=== PATIENT | male | born 1985 | race Caucasian/White ===

== ENCOUNTER 2017-01-02 13:24 | Inpatient (IN) | payer OTHER ==
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
[2017-01-02] MEDS ORDERED: ACETAMINOPHEN 325 MG TABLET (FP) PO PRN (19:12)
[2017-01-02] MEDS ORDERED: MAG HYDROX/AL HYDROX/SIMETH 30 ML UNIT-DOSE CUP PO PRN (19:12)
[2017-01-02] MEDS ORDERED: guaiFENesin/D-METHORPHAN HB 10 ML UNIT-DOSE CUPS PO PRN (19:12)
[2017-01-02] MEDS ORDERED: diphenhydrAMINE HCL 50 MG CAPSULE PO PRN (19:12)
[2017-01-02] MEDS ORDERED: METHADONE HCL 10 MG TABLET (FOR DETOX USE ONLY) PO ONE ×2 (19:12→23:00)
[2017-01-02] MEDS ORDERED: LOPERAMIDE HCL 2 MG CAPSULE PO PRN (19:12)
[2017-01-02] MEDS ORDERED: MAGNESIUM CITRATE 300 ML BOTTLE PO PRN (19:12)
[2017-01-02] MEDS ORDERED: IBUPROFEN 400 MG TABLET (FP) PO PRN (19:12)
[2017-01-02] MEDS ORDERED: MAGNESIUM HYDROX 2400MG/30ML ORAL SUSPENSION 30 ML CUP PO PRN (19:12)
[2017-01-02] MEDS ORDERED: MENTHOL/PHENOL 1 EACH UD MM PRN (19:12)
[2017-01-02] MEDS ORDERED: P-EPHED 60MG/TRIPROLIDI 2.5MG TABLET PO PRN (19:12)
[2017-01-02 19:29] VITALS: BMI 27.0
[2017-01-02] MEDS: chlordiazePOXIDE HCL 25 MG CAPSULE PO PRN (20:17)
[2017-01-02] MEDS: NICOTINE POLACRILEX 4 MG GUM BC PRN ×2 (20:19→22:29)
[2017-01-02] MEDS ORDERED: THIAMINE HCL 100 MG TABLET (FP) PO SCH (22:00)
[2017-01-02] MEDS: CYCLOBENZAPRINE HCL 10 MG TABLET (FP) PO PRN (22:28)
[2017-01-02] MEDS: cloNIDine HCL 0.1 MG TABLET PO PRN (22:29)
[2017-01-02] MEDS: chlordiazePOXIDE HCL 25 MG CAPSULE PO SCH (22:29)
[2017-01-02 22:39] LABS: URINE APPEARANCE CLEAR; URINE BILIRUBIN NEGATIVE (NEGATIVE); URINE BLOOD NEGATIVE (NEGATIVE); URINE COLOR YELLOW; URINE GLUCOSE (UA) NEGATIVE (NEGATIVE); URINE KETONE NEGATIVE (NEGATIVE); URINE LEUK ESTERASE NEGATIVE (NEGATIVE); URINE NITRITE NEGATIVE (NEGATIVE); URINE PROTEIN NEGATIVE (NEGATIVE); URINE UROBILINOGEN NEGATIVE E.U./dl (0.2-1.0)
[2017-01-03] MEDS: chlordiazePOXIDE HCL 25 MG CAPSULE PO SCH ×2 (05:33→10:11)
[2017-01-03] MEDS: NICOTINE POLACRILEX 4 MG GUM BC PRN ×3 (05:35→14:54)
--- NOTE | 2017-01-03 08:24 | CONSULT ---
[facility] Psychiatric Consult - Data Date of interview: 01/03/17 Admission source: [facility] Identifying data: This is 31 years old male with no psychiatric hospitaliztion history intoxicated with: Opioids, Xanax and Nicotine Substance Abuse History: - Smoking Cessation. Smoking history: Current every day smoker. Have you smoked in the past 12 months: Yes. Aproximately how many cigarettes per day: 30. Cigars Per Day: 0. Hx Chewing Tobacco Use: No. Initiated information on smoking cessation: Yes. 'Breaking Loose' booklet given : 01/02/17. - Substance & Tx. History. Hx Alcohol Use: No. Hx Substance Use: Yes. Substance Use Type: Cocaine, Heroin, Tranquilizers. Hx Substance Use Treatment: Yes (07/17-07/19). - Substances Abused. Heroin. Amount used: IO BAGS. Age of first use: 24. Date of Last Use: 01/02/17. Alprazolam ( Xanax). Route: Oral. Frequency: Daily. Amount used: 2 mg. Age of first use: 24. Date of Last Use: 01/01/17 Medical History: Denies significant medical issues Psychiatric History: Reports history of ADHD Physical/Sexual Abuse/Trauma History: Denies Additional Comment: Observation. Detox Unit Care Protocol Mental Status Exam - Mental Status Exam Alert and Oriented to: Person Cognitive Function: Fair Patient Appearance: Unkempt Mood: Sad Affect: Flat Patient Behavior: Cooperative Speech Pattern: Appropriate Voice Loudness: Normal Thought Process: Goal Oriented Thought Disorder: Being Controlled Hallucinations: Denies Suicidal Ideation: Denies Homicidal Ideation: Denies Sleep: Difficulty falling asleep Appetite: Fair Muscle strength/Tone: Normal Gait/Station: Normal Additional Comments: Observation. Detox Unit Care Protocol
[2017-01-03 09:43] LABS: MCHC 32.4 g/dl (32.0-35.9); MEAN CELL VOLUME 86.3 fl (80-96); MEAN PLT VOLUME 8.2 fl (7.5-11.1); PLATELET COUNT 231 K/MM3 (134-434); RDW 15.3 % (11.9-15.9); WHITE BLOOD COUNT 11.4 K/mm3 (4.0-10.0)
[2017-01-03] MEDS ORDERED: METHADONE HCL 10 MG TABLET (FOR DETOX USE ONLY) PO SCH (10:00)
[2017-01-03] MEDS ORDERED: NICOTINE 21 MG/24 HOURS TOPICAL PATCH TD SCH (10:00)
[2017-01-03] MEDS ORDERED: PRENATAL VITAMINS W/ FOLIC ACID TABLET (FP) PO SCH (10:00)
[2017-01-03] MEDS: cloNIDine HCL 0.1 MG TABLET PO PRN (10:10)
[2017-01-03] MEDS: CYCLOBENZAPRINE HCL 10 MG TABLET (FP) PO PRN (10:10)
--- NOTE | 2017-01-03 12:03 | PN ---
[facility] CIWA - CIWA Score Nausea/Vomitin-No Nausea/No Vomiting Muscle Tremors: 3 Anxiety: 3 Agitation: 4-Moderately Restless Paroxysmal Sweats: 3 Orientation: 0-Oriented Tacttile Disturbances: 0-None Auditory Disturbances: 0-None Visual Disturbances: 0-None Headache: 0-None Present CIWA-Ar Total Score: 13 [facility] COWS - Scale Resting Pulse: 0= [place] 80 or Below Sweatin=Flushed/Facial Moisture Restless Observation: 1= Difficult to Sit Still Pupil Size: 0= Normal to Room Light Bone or Joint Aches: 2= Severe Diffuse Aches Runny Nose/ Eye Tearin= Runny Nose/Eyes GI Upset > 30mins: 0= None Tremor Observation of Outstretched Hands: 2= Slight Tremor Visible Yawning Observation: 1= 1-2x During Session Anxiety or Irritability: 2=Irritable/Anxious Goose Flesh Skin: 0=Smooth Skin COWS Score: 12 S Progress Note (SOAP) Subjective: hot/cold flashes sweats irritable agitation interrupted sleep Objective: 01/03/17 12:02 Vital Signs Temperature 98.2 F 01/03/17 09:51 Pulse Rate 74 01/03/17 09:51 Respiratory Rate 20 01/03/17 09:51 Blood Pressure 127/87 01/03/17 09:51 O2 Sat by Pulse Oximetry (%) Laboratory Tests 01/02/17 01/03/17 22:15 07:00 WBC 11.4 H D RBC 4.58 Hgb 12.8 Hct 39.5 MCV 86.3 MCHC 32.4 RDW 15.3 Plt Count 231 MPV 8.2 Urine Color Yellow Urine Appearance Clear Urine pH 5.0 Ur Specific [place] >= 1.030 H Urine Protein Negative Urine Glucose (UA) Negative Urine Ketones Negative Urine Blood Negative Urine Nitrite Negative Urine Bilirubin Negative Urine Urobilinogen Negative Ur Leukocyte Esterase Negative labs pending awake/alert ambulating no acute distress Assessment: 01/03/17 12:02 withdrawal sx Plan: continue detox increase fluids labs pending
--- NOTE | 2017-01-03 12:41 | EKG ---
Test Reason : Blood Pressure : / mmHG Vent. Rate : 063 BPM Atrial Rate : 063 BPM P-R Int : 172 ms QRS Dur : 092 ms QT Int : 402 ms P-R-T Axes : 049 068 012 degrees QTc Int : 411 ms NORMAL SINUS RHYTHM WITH SINUS ARRHYTHMIA SEPTAL INFARCT , AGE UNDETERMINED ABNORMAL ECG WHEN COMPARED WITH ECG OF 16-NOV-2009 22:03, SEPTAL INFARCT IS NOW PRESENT Confirmed by SAEED BYRNES, HECTOR ([id number]) on 01/03/2017 12:40:53 PM Referred By: Yayo Miner Confirmed By:HECTOR TIPTON MD
[2017-01-03 13:20] LABS: ALBUMIN 3.4 g/dl (3.4-5.0); ALK PHOS 55 U/L (45-117); ANION GAP 9 (8-16); BILIRUBIN,TOTAL 0.5 mg/dL (0.2-1.0); CALCIUM 9.4 mg/dL (8.5-10.1); CO2 28 mmol/L (21-32); GLUCOSE,RANDOM 82 mg/dL (74-106); SGOT/AST 10 U/L (15-37); SGPT/ALT 11 U/L (12-78); TOT PROT 7.2 g/dl (6.4-8.2)
[2017-01-03] MEDS: chlordiazePOXIDE HCL 25 MG CAPSULE PO PRN (14:53)
[2017-01-03 16:58] VITALS: BP 119/65; PULSE 64; TEMP 98.4
--- NOTE | 2017-01-03 21:52 | DS ---
[facility] Detox Discharge Summary Admission Date: 01/02/17 Discharge Date: 01/03/17 - History Present History: Opioid Dependence, Sedative Dependence Additional Comments: patient wants to leave the unit refuses to wait face to face with the provider refuses e prescription - Physical Exam Results Vital Signs: Vital Signs Temperature 98.4 F 01/03/17 16:58 Pulse Rate 64 01/03/17 16:58 Respiratory Rate 18 01/03/17 16:58 Blood Pressure 119/65 01/03/17 16:58 O2 Sat by Pulse Oximetry (%) Pertinent Admission Physical Exam Findings: withdrawal sx Laboratory Last Values WBC 11.4 K/mm3 (4.0-10.0) H D 01/03/17 07:00 RBC 4.58 M/mm3 (4.00-5.60) 01/03/17 07:00 Hgb 12.8 GM/dL (11.7-16.9) 01/03/17 07:00 Hct 39.5 % (35.4-49) 01/03/17 07:00 MCV 86.3 fl (80-96) 01/03/17 07:00 MCHC 32.4 g/dl (32.0-35.9) 01/03/17 07:00 RDW 15.3 % (11.9-15.9) 01/03/17 07:00 Plt Count 231 K/MM3 (134-434) 01/03/17 07:00 MPV 8.2 fl (7.5-11.1) 01/03/17 07:00 Sodium 142 mmol/L (136-145) 01/03/17 07:00 Potassium 3.9 mmol/L (3.5-5.1) 01/03/17 07:00 Chloride 105 mmol/L (98-107) 01/03/17 07:00 Carbon Dioxide 28 mmol/L (21-32) 01/03/17 07:00 Anion Gap 9 (8-16) 01/03/17 07:00 BUN 8 mg/dL (7-18) D 01/03/17 07:00 Creatinine 1.0 mg/dL (0.7-1.3) 01/03/17 07:00 Creat Clearance w eGFR > 60 (>60) 01/03/17 07:00 Random Glucose 82 mg/dL (74-106) 01/03/17 07:00 Calcium 9.4 mg/dL (8.5-10.1) 01/03/17 07:00 Total Bilirubin 0.5 mg/dL (0.2-1.0) 01/03/17 07:00 AST 10 U/L (15-37) L 01/03/17 07:00 ALT 11 U/L (12-78) L D 01/03/17 07:00 Alkaline Phosphatase 55 U/L (45-117) D 01/03/17 07:00 Total Protein 7.2 g/dl (6.4-8.2) 01/03/17 07:00 Albumin 3.4 g/dl (3.4-5.0) 01/03/17 07:00 Urine Color Yellow 01/02/17 22:15 Urine Appearance Clear 01/02/17 22:15 Urine pH 5.0 (5.0-8.0) 01/02/17 22:15 Ur Specific [place] >= 1.030 (1.005-1.025) H 01/02/17 22:15 Urine Protein Negative (NEGATIVE) 01/02/17 22:15 Urine Glucose (UA) Negative (NEGATIVE) 01/02/17 22:15 Urine Ketones Negative (NEGATIVE) 01/02/17 22:15 Urine Blood Negative (NEGATIVE) 01/02/17 22:15 Urine Nitrite Negative (NEGATIVE) 01/02/17 22:15 Urine Bilirubin Negative (NEGATIVE) 01/02/17 22:15 Urine Urobilinogen Negative E.U./dl (0.2-1.0) 01/02/17 22:15 Ur Leukocyte Esterase Negative (NEGATIVE) 01/02/17 22:15 RPR Titer Nonreactive (NONREACTIVE) 01/03/17 07:00 lab noted - Treatment Hospital Course: Detox Protocol Followed, Responded well - Medication Discharge Medications: Ambulatory Orders NK [No Known Home Medication] 07/17/15 - Diagnosis (1) Nicotine dependence Status: Acute Qualifiers: Nicotine product type: cigarettes Substance use status: in withdrawal Qualified Code(s): F17.213 - Nicotine dependence, cigarettes, with withdrawal (2) Opioid dependence with withdrawal Status: Acute (3) Uncomplicated sedative, hypnotic or anxiolytic withdrawal Status: Acute - AMA Did Patient Leave Against Medical Advice: Yes
[2017-01-03] MEDS ORDERED: chlordiazePOXIDE HCL 25 MG CAPSULE PO SCH (23:00)
[2017-01-04] MEDS ORDERED: METHADONE HCL 5 MG TABLET (FOR DETOX USE ONLY) PO SCH (10:00)
[2017-01-04] MEDS ORDERED: chlordiazePOXIDE 5 MG CAPSULE PO SCH (23:00)
[2017-01-05] MEDS ORDERED: METHADONE HCL 10 MG TABLET (FOR DETOX USE ONLY) PO SCH (10:00)
[2017-01-05] MEDS ORDERED: chlordiazePOXIDE HCL 10 MG CAPSULE PO SCH (23:00)
[2017-01-06] MEDS ORDERED: METHADONE HCL 5 MG TABLET (FOR DETOX USE ONLY) PO SCH (06:00)
[2017-01-06] MEDS ORDERED: METHADONE HCL 10 MG TABLET (FOR DETOX USE ONLY) PO SCH (10:00)
[2017-01-07] MEDS ORDERED: METHADONE HCL 5 MG TABLET (FOR DETOX USE ONLY) PO SCH (06:00)
== END 2017-01-03 16:50 | disposition left against medical advice (07) | DRG 894 ==
LOC: YASAS 13:24 → Y6N 18:46
PROVIDERS: ADMIT Internal Medicine; ATTEND Internal Medicine
PROC: HZ2ZZZZ Detoxification Services for Substance Abuse Treatment (ICD-10-PCS; principal; 2017-01-02)
DX: F11.23 Opioid dependence with withdrawal (principal); F13.230 Sedative, hypnotic or anxiolytic dependence with withdrawal, uncomplicated; F17.213 Nicotine dependence, cigarettes, with withdrawal
CPT/HCPCS: 36415; 80053; 81003; 85027; 86593; 93005; 93010

== ENCOUNTER 2018-10-07 15:35 | Inpatient (IN) | payer SELFPAY ==
[2018-10-07 19:25] VITALS: BMI 25.7
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
[2018-10-07] MEDS ORDERED: NALOXONE HCL 0.4 MG/ML VIAL IVPUSH PRN (22:09)
[2018-10-07] MEDS ORDERED: ACETAMINOPHEN 325 MG TABLET (FP) PO PRN ×2 (22:13)
[2018-10-07] MEDS ORDERED: MELATONIN 5 MG TABLETS PO PRN (22:13)
[2018-10-07] MEDS ORDERED: BISMUTH SUBSALICYLATE 524 MG/30 ML UD PO PRN (22:13)
[2018-10-07] MEDS ORDERED: MENTHOL/PHENOL 1 EACH UD MM PRN (22:13)
[2018-10-07] MEDS ORDERED: MAGNESIUM HYDROX 2400MG/30ML ORAL SUSPENSION 30 ML CUP PO PRN (22:13)
[2018-10-07] MEDS ORDERED: IBUPROFEN 400 MG TABLET (FP) PO PRN (22:13)
[2018-10-07] MEDS ORDERED: MAGNESIUM CITRATE 300 ML BOTTLE PO PRN (22:13)
[2018-10-07] MEDS ORDERED: MAG HYDROX/AL HYDROX/SIMETH 30 ML UNIT-DOSE CUP PO PRN (22:13)
[2018-10-07] MEDS ORDERED: hydrOXYzine PAMOATE 50 MG CAPSULE (FP) PO PRN (22:20)
[2018-10-07] MEDS ORDERED: HYDROCORTISONE 1% TOPICAL CREAM 30 GM TUBE TP PRN (22:27)
[2018-10-07] MEDS ORDERED: METHADONE HCL 10 MG TABLET (FOR DETOX USE ONLY) PO ONE (23:00)
[2018-10-07] MEDS: CYCLOBENZAPRINE HCL 10 MG TABLET (FP) PO SCH (23:55)
[2018-10-07] MEDS: chlordiazePOXIDE HCL 10 MG CAPSULE PO PRN (23:57)
[2018-10-08] MEDS ORDERED: BACITRACIN 0.9 GM PACKET ONE ×2 (00:01→11:19)
[2018-10-08] MEDS: BACITRACIN 15 GM TUBE TOPICAL OINTMENT TP SCH ×3 (00:02→22:43)
[2018-10-08] MEDS: CYCLOBENZAPRINE HCL 10 MG TABLET (FP) PO SCH ×3 (06:33→22:44)
[2018-10-08] MEDS: chlordiazePOXIDE HCL 10 MG CAPSULE PO PRN ×2 (06:37→17:11)
[2018-10-08] MEDS: NICOTINE POLACRILEX 2 MG GUM BUC PRN ×4 (06:41→20:59)
[2018-10-08] MEDS ORDERED: METHADONE HCL 10 MG TABLET (FOR DETOX USE ONLY) PO ONE (10:00)
[2018-10-08] MEDS: PRENATAL VITAMINS W/ FOLIC ACID TABLET (FP) PO SCH (11:17)
[2018-10-08] MEDS: NICOTINE 21 MG/24 HOURS TOPICAL PATCH TD SCH (11:21)
[2018-10-08 11:31] LABS: ALBUMIN 3.5 g/dl (3.4-5.0); ALK PHOS 60 U/L (45-117); ANION GAP 7 MMOL/L (8-16); BILIRUBIN,TOTAL 0.4 mg/dL (0.2-1); BLOOD UREA NITROGEN 16 mg/dL (7-18); CALCIUM 8.9 mg/dL (8.5-10.1); CHLORIDE 104 mmol/L (98-107); CO2 29 mmol/L (21-32); GLUCOSE,RANDOM 96 mg/dL (74-106); POTASSIUM 3.8 mmol/L (3.5-5.1); SGOT/AST 5 U/L (15-37); SGPT/ALT 14 U/L (13-61); SODIUM 139 mmol/L (136-145); TOT PROT 7.1 g/dl (6.4-8.2)
[2018-10-08 11:37] LABS: URINE APPEARANCE CLEAR; URINE BILIRUBIN NEGATIVE (<2.0 mg/dL); URINE COLOR YELLOW; URINE GLUCOSE (UA) NEGATIVE (NEGATIVE); URINE KETONE NEGATIVE (NEGATIVE); URINE LEUK ESTERASE NEGATIVE (NEGATIVE); URINE NITRITE NEGATIVE (NEGATIVE); URINE PROTEIN NEGATIVE (NEGATIVE); URINE UROBILINOGEN NEGATIVE mg/dL (0.2-1.0)
[2018-10-08 11:43] LABS: HEMOGLOBIN 12.1 GM/dL (11.7-16.9); MCH 29.9 pg (25.7-33.7); MCHC 34.6 g/dl (32.0-35.9); MEAN CELL VOLUME 86.4 fl (80-96); MEAN PLT VOLUME 7.6 fl (7.5-11.1); PLATELET COUNT 290 K/MM3 (134-434); RBC 4.06 M/mm3 (4.00-5.60); RDW 14.8 % (11.9-15.9); WHITE BLOOD COUNT 5.6 K/mm3 (4.0-10.0)
--- NOTE | 2018-10-08 14:55 | PN ---
BHS COWS - Scale Resting Pulse: 1= [place] 81-100 Sweatin= No chills or Flushing Restless Observation: 1= Difficult to Sit Still Pupil Size: 0= Normal to Room Light Bone or Joint Aches: 1= Mild Discomfort Runny Nose/ Eye Tearin= Nasal Congestion GI Upset > 30mins: 0= None Tremor Observation of Outstretched Hands: 1= Tremor [place], Not Seen Yawning Observation: 0= None Anxiety or Irritability: 1=Feels Anxious/Irritable Goose Flesh Skin: 0=Smooth Skin COWS Score: 6 BHS Progress Note (SOAP) Subjective: pt states he is doing well with detox protocol O: Vital Signs - 24 hr 10/07/18 10/08/18 10/08/18 19:23 00:05 03:30 Temperature 97.2 F L 97.9 F Pulse Rate 90 81 Respiratory 18 18 18 Rate Blood Pressure 129/81 140/76 10/08/18 10/08/18 10/08/18 07:22 09:36 14:10 Temperature 97.7 F 97.2 F L 98.1 F Pulse Rate 82 85 85 Respiratory 18 16 18 Rate Blood Pressure 116/58 L 119/62 117/71 Laboratory Tests 10/08/18 10/08/18 10/08/18 07:30 07:30 07:30 WBC 5.6 RBC 4.06 Hgb 12.1 Hct 35.0 L MCV 86.4 MCH 29.9 MCHC 34.6 RDW 14.8 Plt Count 290 D MPV 7.6 Sodium 139 Potassium 3.8 Chloride 104 Carbon Dioxide 29 Anion Gap 7 L BUN 16 Creatinine 1.0 Creat Clearance w eGFR 85.54 Random Glucose 96 Calcium 8.9 Total Bilirubin 0.4 AST 5 L ALT 14 Alkaline Phosphatase 60 Total Protein 7.1 Albumin 3.5 Urine Color Urine Appearance Urine pH Ur Specific [place] Urine Protein Urine Glucose (UA) Urine Ketones Urine Blood Urine Nitrite Urine Bilirubin Urine Urobilinogen Ur Leukocyte Esterase RPR Titer Nonreactive HIV 1&2 Antibody Screen HIV P24 Antigen 10/08/18 10/08/18 07:30 08:00 WBC RBC Hgb Hct MCV MCH MCHC RDW Plt Count MPV Sodium Potassium Chloride Carbon Dioxide Anion Gap BUN Creatinine Creat Clearance w eGFR Random Glucose Calcium Total Bilirubin AST ALT Alkaline Phosphatase Total Protein Albumin Urine Color Yellow Urine Appearance Clear Urine pH 5.0 Ur Specific [place] 1.027 Urine Protein Negative Urine Glucose (UA) Negative Urine Ketones Negative Urine Blood Negative Urine Nitrite Negative Urine Bilirubin Negative Urine Urobilinogen Negative Ur Leukocyte Esterase Negative RPR Titer HIV 1&2 Antibody Screen Negative HIV P24 Antigen Negative a/p: continue heroin detox protocol, pt advised to start MAT methadone or suboxone at discharge
[2018-10-08] MEDS ORDERED: THIAMINE HCL 100 MG TABLET (FP) PO SCH (22:00)
[2018-10-09] MEDS: CYCLOBENZAPRINE HCL 10 MG TABLET (FP) PO SCH ×2 (07:28→13:24)
[2018-10-09] MEDS: NICOTINE POLACRILEX 2 MG GUM BUC PRN ×2 (07:29→17:13)
[2018-10-09] MEDS ORDERED: METHADONE HCL 10 MG TABLET (FOR DETOX USE ONLY) PO ONE (10:00)
[2018-10-09] MEDS: PRENATAL VITAMINS W/ FOLIC ACID TABLET (FP) PO SCH (10:46)
[2018-10-09] MEDS: NICOTINE 21 MG/24 HOURS TOPICAL PATCH TD SCH (10:46)
--- NOTE | 2018-10-09 12:33 | PN ---
BHS COWS - Scale Resting Pulse: 0= [place] 80 or Below Sweatin= Chills/Flushing Restless Observation: 1= Difficult to Sit Still Pupil Size: 1= Pupils >than Normal Bone or Joint Aches: 2= Severe Diffuse Aches Runny Nose/ Eye Tearin= Runny Nose/Eyes GI Upset > 30mins: 2= Nausea/Diarrhea Tremor Observation of Outstretched Hands: 2= Slight Tremor Visible Yawning Observation: 1= 1-2x During Session Anxiety or Irritability: 2=Irritable/Anxious Goose Flesh Skin: 0=Smooth Skin COWS Score: 14 S Progress Note (SOAP) Subjective: alert,irritable,anxious,interrupted sleep,pain in the body and back Objective: 10/09/18 12:31 Vital Signs Temperature 97.7 F 10/09/18 09:54 Pulse Rate 64 10/09/18 09:54 Respiratory Rate 18 10/09/18 09:54 Blood Pressure 126/80 10/09/18 09:54 O2 Sat by Pulse Oximetry (%) Laboratory Last Values WBC 5.6 K/mm3 (4.0-10.0) 10/08/18 07:30 RBC 4.06 M/mm3 (4.00-5.60) 10/08/18 07:30 Hgb 12.1 GM/dL (11.7-16.9) 10/08/18 07:30 Hct 35.0 % (35.4-49) L 10/08/18 07:30 MCV 86.4 fl (80-96) 10/08/18 07:30 MCH 29.9 pg (25.7-33.7) 10/08/18 07:30 MCHC 34.6 g/dl (32.0-35.9) 10/08/18 07:30 RDW 14.8 % (11.9-15.9) 10/08/18 07:30 Plt Count 290 K/MM3 (134-434) D 10/08/18 07:30 MPV 7.6 fl (7.5-11.1) 10/08/18 07:30 Sodium 139 mmol/L (136-145) 10/08/18 07:30 Potassium 3.8 mmol/L (3.5-5.1) 10/08/18 07:30 Chloride 104 mmol/L (98-107) 10/08/18 07:30 Carbon Dioxide 29 mmol/L (21-32) 10/08/18 07:30 Anion Gap 7 MMOL/L (8-16) L 10/08/18 07:30 BUN 16 mg/dL (7-18) 10/08/18 07:30 Creatinine 1.0 mg/dL (0.55-1.3) 10/08/18 07:30 Creat Clearance w eGFR 85.54 (>60) 10/08/18 07:30 Random Glucose 96 mg/dL (74-106) 10/08/18 07:30 Calcium 8.9 mg/dL (8.5-10.1) 10/08/18 07:30 Total Bilirubin 0.4 mg/dL (0.2-1) 10/08/18 07:30 AST 5 U/L (15-37) L 10/08/18 07:30 ALT 14 U/L (13-61) 10/08/18 07:30 Alkaline Phosphatase 60 U/L (45-117) 10/08/18 07:30 Total Protein 7.1 g/dl (6.4-8.2) 10/08/18 07:30 Albumin 3.5 g/dl (3.4-5.0) 10/08/18 07:30 Urine Color Yellow 10/08/18 08:00 Urine Appearance Clear 10/08/18 08:00 Urine pH 5.0 (5.0-8.0) 10/08/18 08:00 Ur Specific [place] 1.027 (1.010-1.035) 10/08/18 08:00 Urine Protein Negative (NEGATIVE) 10/08/18 08:00 Urine Glucose (UA) Negative (NEGATIVE) 10/08/18 08:00 Urine Ketones Negative (NEGATIVE) 10/08/18 08:00 Urine Blood Negative (NEGATIVE) 10/08/18 08:00 Urine Nitrite Negative (NEGATIVE) 10/08/18 08:00 Urine Bilirubin Negative (<2.0 mg/dL) 10/08/18 08:00 Urine Urobilinogen Negative mg/dL (0.2-1.0) 10/08/18 08:00 Ur Leukocyte Esterase Negative (NEGATIVE) 10/08/18 08:00 RPR Titer Nonreactive (NONREACTIVE) 10/08/18 07:30 HIV 1&2 Antibody Screen Negative 10/08/18 07:30 HIV P24 Antigen Negative 10/08/18 07:30 Assessment: 10/09/18 12:32 withdrawal symptom Plan: continue detox
[2018-10-09] MEDS: BACITRACIN 15 GM TUBE TOPICAL OINTMENT TP SCH (12:53)
[2018-10-09 17:01] VITALS: BP 121/64; PULSE 75; TEMP 97.9
--- NOTE | 2018-10-09 18:53 | DS ---
[facility] Detox Discharge Summary Admission Date: 10/07/18 Discharge Date: 10/09/18 - History Present History: Opioid Dependence Additional Comments: Patient left AMA, stable. No SI/HI. Follow up with attached referrals , if worsening symptoms are present seek medical attention or go local ED. Pertinent Past History: Vital Signs Temperature 97.9 F 10/09/18 17:00 Pulse Rate 75 10/09/18 17:00 Respiratory Rate 18 10/09/18 17:00 Blood Pressure 121/64 10/09/18 17:00 O2 Sat by Pulse Oximetry (%) Laboratory Last Values WBC 5.6 K/mm3 (4.0-10.0) 10/08/18 07:30 RBC 4.06 M/mm3 (4.00-5.60) 10/08/18 07:30 Hgb 12.1 GM/dL (11.7-16.9) 10/08/18 07:30 Hct 35.0 % (35.4-49) L 10/08/18 07:30 MCV 86.4 fl (80-96) 10/08/18 07:30 MCH 29.9 pg (25.7-33.7) 10/08/18 07:30 MCHC 34.6 g/dl (32.0-35.9) 10/08/18 07:30 RDW 14.8 % (11.9-15.9) 10/08/18 07:30 Plt Count 290 K/MM3 (134-434) D 10/08/18 07:30 MPV 7.6 fl (7.5-11.1) 10/08/18 07:30 Sodium 139 mmol/L (136-145) 10/08/18 07:30 Potassium 3.8 mmol/L (3.5-5.1) 10/08/18 07:30 Chloride 104 mmol/L (98-107) 10/08/18 07:30 Carbon Dioxide 29 mmol/L (21-32) 10/08/18 07:30 Anion Gap 7 MMOL/L (8-16) L 10/08/18 07:30 BUN 16 mg/dL (7-18) 10/08/18 07:30 Creatinine 1.0 mg/dL (0.55-1.3) 10/08/18 07:30 Creat Clearance w eGFR 85.54 (>60) 10/08/18 07:30 Random Glucose 96 mg/dL (74-106) 10/08/18 07:30 Calcium 8.9 mg/dL (8.5-10.1) 10/08/18 07:30 Total Bilirubin 0.4 mg/dL (0.2-1) 10/08/18 07:30 AST 5 U/L (15-37) L 10/08/18 07:30 ALT 14 U/L (13-61) 10/08/18 07:30 Alkaline Phosphatase 60 U/L (45-117) 10/08/18 07:30 Total Protein 7.1 g/dl (6.4-8.2) 10/08/18 07:30 Albumin 3.5 g/dl (3.4-5.0) 10/08/18 07:30 Urine Color Yellow 10/08/18 08:00 Urine Appearance Clear 10/08/18 08:00 Urine pH 5.0 (5.0-8.0) 10/08/18 08:00 Ur Specific [place] 1.027 (1.010-1.035) 10/08/18 08:00 Urine Protein Negative (NEGATIVE) 10/08/18 08:00 Urine Glucose (UA) Negative (NEGATIVE) 10/08/18 08:00 Urine Ketones Negative (NEGATIVE) 10/08/18 08:00 Urine Blood Negative (NEGATIVE) 10/08/18 08:00 Urine Nitrite Negative (NEGATIVE) 10/08/18 08:00 Urine Bilirubin Negative (<2.0 mg/dL) 10/08/18 08:00 Urine Urobilinogen Negative mg/dL (0.2-1.0) 10/08/18 08:00 Ur Leukocyte Esterase Negative (NEGATIVE) 10/08/18 08:00 RPR Titer Nonreactive (NONREACTIVE) 10/08/18 07:30 HIV 1&2 Antibody Screen Negative 10/08/18 07:30 HIV P24 Antigen Negative 10/08/18 07:30 - Physical Exam Results Vital Signs: Vital Signs Temperature 97.9 F 10/09/18 17:00 Pulse Rate 75 10/09/18 17:00 Respiratory Rate 18 10/09/18 17:00 Blood Pressure 121/64 10/09/18 17:00 O2 Sat by Pulse Oximetry (%) - Medication Discharge Medications: Ambulatory Orders Alprazolam 4 mg PO HS PRN 05/10/18 Cyclobenzaprine HCl [Flexeril -] 10 mg PO TID 05/10/18 - Diagnosis (1) Opioid dependence with withdrawal Current Visit: Yes Status: Acute (2) Nicotine dependence Current Visit: Yes Status: Chronic Qualifiers: Nicotine product type: cigarettes Substance use status: in withdrawal Qualified Code(s): F17.213 - Nicotine dependence, cigarettes, with withdrawal (3) Track [place] due to intravenous drug abuse Current Visit: Yes Status: Chronic - AMA Did Patient Leave Against Medical Advice: Yes
[2018-10-10] MEDS ORDERED: METHADONE HCL 10 MG TABLET (FOR DETOX USE ONLY) PO ONE (10:00)
[2018-10-11] MEDS ORDERED: METHADONE HCL 5 MG TABLET (FOR DETOX USE ONLY) PO ONE (06:00)
== END 2018-10-09 18:59 | disposition left against medical advice (07) | DRG 770 ==
LOC: YASAS 15:35 → Y6N 23:09
PROVIDERS: ADMIT Surgery; ATTEND Surgery
PROC: HZ2ZZZZ Detoxification Services for Substance Abuse Treatment (ICD-10-PCS; principal; 2018-10-07)
DX: F11.23 Opioid dependence with withdrawal (principal); F17.213 Nicotine dependence, cigarettes, with withdrawal; F41.8 Other specified anxiety disorders; F32.9 Major depressive disorder, single episode, unspecified; F90.9 Attention-deficit hyperactivity disorder, unspecified type
CPT/HCPCS: 36415; 80053; 81003; 85027; 86593; 87389

== ENCOUNTER 2019-04-20 18:47 | Inpatient (IN) | payer SELFPAY ==
[2019-04-20 22:42] VITALS: BMI 24.7
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
[2019-04-20] MEDS ORDERED: MAGNESIUM CITRATE 300 ML BOTTLE PO PRN (23:53)
[2019-04-20] MEDS ORDERED: METHOCARBAMOL 500 MG TABLET PO PRN (23:53)
[2019-04-20] MEDS ORDERED: MAGNESIUM HYDROX 2400MG/30ML ORAL SUSPENSION 30 ML CUP PO PRN (23:53)
[2019-04-20] MEDS ORDERED: ACETAMINOPHEN 325 MG TABLET (FP) PO PRN ×2 (23:53)
[2019-04-20] MEDS ORDERED: MENTHOL/PHENOL 1 EACH UD MM PRN (23:53)
[2019-04-20] MEDS ORDERED: MELATONIN 5 MG TABLETS PO PRN (23:53)
[2019-04-20] MEDS ORDERED: BISMUTH SUBSALICYLATE 524 MG/30 ML UD PO PRN (23:53)
[2019-04-20] MEDS ORDERED: ONDANSETRON *ODT* 4 MG TABLET SL PRN (23:53)
[2019-04-20] MEDS ORDERED: MAG HYDROX/AL HYDROX/SIMETH 30 ML UNIT-DOSE CUP PO PRN (23:53)
[2019-04-20] MEDS ORDERED: guaiFENesin 200 MG/10 ML 10 ML UNIT-DOSE CUPS PO PRN (23:53)
[2019-04-20] MEDS ORDERED: IBUPROFEN 400 MG TABLET (FP) PO PRN (23:53)
[2019-04-20] MEDS ORDERED: P-EPHED 60MG/TRIPROLIDI 2.5MG TABLET PO PRN (23:53)
[2019-04-20] MEDS ORDERED: DICYCLOMINE HCL 10 MG CAPSULE PO PRN (23:53)
[2019-04-20] MEDS ORDERED: METHADONE HCL 10 MG TABLET (FOR DETOX USE ONLY) PO ONE (23:53)
[2019-04-20] MEDS ORDERED: NALOXONE HCL 0.4 MG/ML VIAL IM PRN (23:53)
[2019-04-21] MEDS: NICOTINE POLACRILEX 2 MG GUM BUC PRN ×3 (01:02→13:38)
[2019-04-21] MEDS: clonazePAM 0.5 MG TABLET PO PRN ×3 (01:02→15:20)
[2019-04-21] MEDS ORDERED: METHADONE HCL 10 MG TABLET (FOR DETOX USE ONLY) PO ONE (10:00)
[2019-04-21] MEDS ORDERED: NICOTINE 14 MG/24 HOURS TOPICAL PATCH TD SCH (10:00)
[2019-04-21] MEDS ORDERED: PRENATAL VITAMINS W/ FOLIC ACID TABLET (FP) PO SCH (10:00)
[2019-04-21 12:12] LABS: HEMATOCRIT 35.8 % (35.4-49); MCH 28.9 pg (25.7-33.7); MCHC 33.6 g/dl (32.0-35.9); MEAN CELL VOLUME 85.9 fl (80-96); MEAN PLT VOLUME 8.4 fl (7.5-11.1); PLATELET COUNT 219 K/MM3 (134-434); RBC 4.16 M/mm3 (4.00-5.60); RDW 14.6 % (11.9-15.9); WHITE BLOOD COUNT 5.3 K/mm3 (4.0-10.0)
[2019-04-21 12:55] LABS: ALBUMIN 3.5 g/dl (3.4-5.0); BILIRUBIN,TOTAL 0.5 mg/dL (0.2-1); BLOOD UREA NITROGEN 17.6 mg/dL (7-18); CALCIUM 9.1 mg/dL (8.5-10.1); CREATININE 0.9 mg/dL (0.55-1.3); POTASSIUM 4.2 mmol/L (3.5-5.1); TOT PROT 6.9 g/dl (6.4-8.2)
--- NOTE | 2019-04-21 14:13 | PN ---
BHS COWS - Scale Resting Pulse: 0= [place] 80 or Below Sweatin= Chills/Flushing Restless Observation: 1= Difficult to Sit Still Pupil Size: 0= Normal to Room Light Bone or Joint Aches: 2= Severe Diffuse Aches Runny Nose/ Eye Tearin= Runny Nose/Eyes GI Upset > 30mins: 1= Stomach Cramp Tremor Observation of Outstretched Hands: 2= Slight Tremor Visible Yawning Observation: 2= >3x During Session Anxiety or Irritability: 2=Irritable/Anxious Goose Flesh Skin: 0=Smooth Skin COWS Score: 13 BHS Progress Note (SOAP) Subjective: sweats shakes interrupted sleep body aches anxiety irritable Objective: 04/21/19 14:13 Vital Signs Temperature 98.2 F 04/21/19 13:33 Pulse Rate 81 04/21/19 13:33 Respiratory Rate 18 04/21/19 13:33 Blood Pressure 148/79 04/21/19 13:33 O2 Sat by Pulse Oximetry (%) Laboratory Tests 04/21/19 04/21/19 08:45 08:45 WBC 5.3 RBC 4.16 Hgb 12.0 Hct 35.8 MCV 85.9 MCH 28.9 MCHC 33.6 RDW 14.6 Plt Count 219 D MPV 8.4 D Sodium 140 Potassium 4.2 Chloride 106 Carbon Dioxide 27 Anion Gap 8 BUN 17.6 Creatinine 0.9 Est GFR (CKD-EPI)AfAm 127.80 Est GFR (CKD-EPI)NonAf 110.27 Random Glucose 100 Calcium 9.1 Total Bilirubin 0.5 AST 12 L ALT 19 Alkaline Phosphatase 51 Total Protein 6.9 Albumin 3.5 labs noted aaox3 ambulating no acute distress Assessment: 04/21/19 14:13 withdrawal sx Plan: continue detox increase fluids
[2019-04-21 17:24] VITALS: BP 120/71; PULSE 69; TEMP 98.4
--- NOTE | 2019-04-21 20:32 | PN ---
S Progress Note Note: States leaving. States is not ready for detox. Vital Signs 04/21/19 04/21/19 13:33 17:24 Temperature 98.2 F 98.4 F Pulse Rate 81 69 Respiratory 18 20 Rate Blood Pressure 148/79 120/71 COWS: Restless Observation: 3= Extraneous movement Anxiety or Irritability: 2=Irritable/Anxious COWS Score: 5 States aware of overdose risks. Has Narcan at home and someone who knows how to use. Declined nicotine patch and gum. Insists on leaving AMA, despite encouragement to stay.
--- NOTE | 2019-04-21 20:34 | DS ---
[facility] Detox Discharge Summary Admission Date: 04/21/19 Discharge Date: 04/21/19 - History Present History: Opioid Dependence Additional Comments: Patient c/o heroin withdrawal symptoms seeking detox. Pertinent Past History: Nicotine use disorder. Patient denied significant PMH. - Physical Exam Results Vital Signs: Vital Signs Temperature 98.4 F 04/21/19 17:24 Pulse Rate 69 04/21/19 17:24 Respiratory Rate 20 04/21/19 17:24 Blood Pressure 120/71 04/21/19 17:24 O2 Sat by Pulse Oximetry (%) Pertinent Admission Physical Exam Findings: Patient admitted w/ opioid withdrawal symptoms.UTox: + FEN/MOP. Lab Results WBC 5.3 K/mm3 (4.0-10.0) 04/21/19 08:45 RBC 4.16 M/mm3 (4.00-5.60) 04/21/19 08:45 Hgb 12.0 GM/dL (11.7-16.9) 04/21/19 08:45 Hct 35.8 % (35.4-49) 04/21/19 08:45 MCV 85.9 fl (80-96) 04/21/19 08:45 MCHC 33.6 g/dl (32.0-35.9) 04/21/19 08:45 RDW 14.6 % (11.9-15.9) 04/21/19 08:45 Plt Count 219 K/MM3 (134-434) D 04/21/19 08:45 Sodium 140 mmol/L (136-145) 04/21/19 08:45 Potassium 4.2 mmol/L (3.5-5.1) 04/21/19 08:45 Chloride 106 mmol/L (98-107) 04/21/19 08:45 Carbon Dioxide 27 mmol/L (21-32) 04/21/19 08:45 Anion Gap 8 MMOL/L (8-16) 04/21/19 08:45 BUN 17.6 mg/dL (7-18) 04/21/19 08:45 Creatinine 0.9 mg/dL (0.55-1.3) 04/21/19 08:45 Random Glucose 100 mg/dL (74-106) 04/21/19 08:45 Calcium 9.1 mg/dL (8.5-10.1) 04/21/19 08:45 LABS REVIEWED. - Treatment Hospital Course: Detox Protocol Followed (Patient did not complete detox.), Discharged Condition Good (COWS: Restless Observation: 3= Extraneous movement Anxiety or Irritability: 2=Irritable/Anxious COWS Score: 5) - Medication Discharge Medications: Ambulatory Orders NK [No Known Home Medication] 04/20/19 - Diagnosis (1) Opioid dependence with withdrawal Status: Acute (2) Track bar[place] due to intravenous drug abuse Status: Chronic (3) History of ankle fracture Status: Chronic (4) Nicotine dependence Status: Chronic Qualifiers: Nicotine product type: cigarettes Substance use status: in withdrawal Qualified Code(s): F17.213 - Nicotine dependence, cigarettes, with withdrawal (5) Substance-induced anxiety disorder Status: Suspected (6) Substance-induced sleep disorder Status: Suspected - AMA Did Patient Leave Against Medical Advice: Yes (Patient refused to stay despite encouragement.)
[2019-04-21] MEDS ORDERED: THIAMINE HCL 100 MG TABLET (FP) PO SCH (22:00)
[2019-04-22] MEDS ORDERED: METHADONE (DETOX) 10 MG, METHADONE (DETOX) 5 MG PO ONE (10:00)
[2019-04-23] MEDS ORDERED: METHADONE HCL 10 MG TABLET (FOR DETOX USE ONLY) PO ONE (10:00)
[2019-04-24] MEDS ORDERED: METHADONE HCL 5 MG TABLET (FOR DETOX USE ONLY) PO ONE (06:00)
== END 2019-04-21 20:11 | disposition left against medical advice (07) | DRG 770 ==
LOC: YASAS 18:47 → Y6N 04-21 00:35
PROVIDERS: ADMIT Surgery; ATTEND Surgery
PROC: HZ2ZZZZ Detoxification Services for Substance Abuse Treatment (ICD-10-PCS; principal; 2019-04-21)
DX: F10.230 Alcohol dependence with withdrawal, uncomplicated (principal); F17.210 Nicotine dependence, cigarettes, uncomplicated; F19.280 Other psychoactive substance dependence with psychoactive substance-induced anxiety disorder; F19.282 Other psychoactive substance dependence with psychoactive substance-induced sleep disorder; L90.5 Scar conditions and fibrosis of skin
CPT/HCPCS: 36415; 80053; 85027; 86593

== ENCOUNTER 2019-06-08 16:09 | Inpatient (IN) | payer BC, OTHER ==
[2019-06-08 17:12] VITALS: BMI 23.5
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
[2019-06-08] MEDS ORDERED: METHOCARBAMOL 500 MG TABLET PO PRN (18:22)
[2019-06-08] MEDS ORDERED: MAG HYDROX/AL HYDROX/SIMETH 30 ML UNIT-DOSE CUP PO PRN (18:22)
[2019-06-08] MEDS ORDERED: IBUPROFEN 400 MG TABLET (FP) PO PRN (18:22)
[2019-06-08] MEDS ORDERED: ACETAMINOPHEN 325 MG TABLET (FP) PO PRN ×2 (18:22)
[2019-06-08] MEDS ORDERED: BISMUTH SUBSALICYLATE 524 MG/30 ML UD PO PRN (18:22)
[2019-06-08] MEDS ORDERED: MENTHOL/PHENOL 1 EACH UD MM PRN (18:22)
[2019-06-08] MEDS ORDERED: MAGNESIUM HYDROX 2400MG/30ML ORAL SUSPENSION 30 ML CUP PO PRN (18:22)
[2019-06-08] MEDS ORDERED: MAGNESIUM CITRATE 300 ML BOTTLE PO PRN (18:22)
[2019-06-08] MEDS ORDERED: cloNIDine HCL 0.1 MG TABLET PO PRN (18:24)
[2019-06-08] MEDS: NICOTINE POLACRILEX 2 MG GUM BUC PRN (19:23)
[2019-06-08] MEDS ORDERED: METHADONE HCL 5 MG TABLET (FOR DETOX USE ONLY) ONE (21:21)
[2019-06-08] MEDS ORDERED: METHADONE HCL 10 MG TABLET (FOR DETOX USE ONLY) ONE (21:21)
[2019-06-08] MEDS ORDERED: METHADONE (DETOX) 20 MG, METHADONE (DETOX) 5 MG PO ONE (22:00)
[2019-06-08] MEDS: chlordiazePOXIDE HCL 10 MG CAPSULE PO PRN (22:23)
[2019-06-08] MEDS: THIAMINE HCL 100 MG TABLET (FP) PO SCH (22:23)
[2019-06-08] MEDS: MELATONIN 5 MG TABLETS PO PRN (22:25)
[2019-06-09] MEDS: chlordiazePOXIDE HCL 10 MG CAPSULE PO PRN ×3 (07:43→21:19)
[2019-06-09] MEDS: NICOTINE POLACRILEX 2 MG GUM BUC PRN ×5 (09:21→21:19)
[2019-06-09] MEDS ORDERED: METHADONE HCL 10 MG TABLET (FOR DETOX USE ONLY) PO ONE (10:00)
[2019-06-09] MEDS ORDERED: NICOTINE 14 MG/24 HOURS TOPICAL PATCH TD SCH (10:00)
[2019-06-09] MEDS ORDERED: PRENATAL VITAMINS W/ FOLIC ACID TABLET (FP) PO SCH (10:00)
[2019-06-09] MEDS ORDERED: diazePAM 5 MG TABLET PO PRN (11:10)
--- NOTE | 2019-06-09 11:13 | PN ---
[facility] COWS - Scale Resting Pulse: 0= [place] 80 or Below Sweatin= Chills/Flushing Restless Observation: 1= Difficult to Sit Still Pupil Size: 0= Normal to Room Light Bone or Joint Aches: 2= Severe Diffuse Aches Runny Nose/ Eye Tearin= Runny Nose/Eyes GI Upset > 30mins: 0= None Tremor Observation of Outstretched Hands: 1= Tremor [place], Not Seen Yawning Observation: 1= 1-2x During Session Anxiety or Irritability: 2=Irritable/Anxious Goose Flesh Skin: 0=Smooth Skin COWS Score: 10 S Progress Note (SOAP) Subjective: agitation sweats irritable why am i on libirum? Objective: 06/09/19 11:12 Vital Signs Temperature 97.7 F 06/09/19 10:27 Pulse Rate 58 L 06/09/19 10:27 Respiratory Rate 18 06/09/19 10:27 Blood Pressure 135/86 06/09/19 10:27 O2 Sat by Pulse Oximetry (%) labs pending aaox3 ambulating no acute distress Assessment: 06/09/19 11:12 withdrawal sx Plan: continue detox librium prn discontinued valium prn x 3 days ordered. pt in agreement.
[2019-06-09 20:50] VITALS: BP 144/85; PULSE 69; TEMP 98.1
[2019-06-09] MEDS: THIAMINE HCL 100 MG TABLET (FP) PO SCH (21:19)
[2019-06-09] MEDS: MELATONIN 5 MG TABLETS PO PRN (21:19)
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
[2019-06-10] MEDS ORDERED: METHADONE (DETOX) 10 MG, METHADONE (DETOX) 5 MG PO ONE (10:00)
[2019-06-11] MEDS ORDERED: METHADONE HCL 10 MG TABLET (FOR DETOX USE ONLY) PO ONE (10:00)
[2019-06-11] MEDS ORDERED: chlordiazePOXIDE 5 MG CAPSULE PO PRN ×2 (14:53→18:29)
[2019-06-12] MEDS ORDERED: METHADONE HCL 5 MG TABLET (FOR DETOX USE ONLY) PO ONE (06:00)
== END 2019-06-09 23:48 | disposition left against medical advice (07) | DRG 770 ==
LOC: YASAS 16:09 → Y6N 18:48
PROVIDERS: ADMIT Allergy & Immunology; ATTEND Allergy & Immunology
PROC: HZ2ZZZZ Detoxification Services for Substance Abuse Treatment (ICD-10-PCS; principal; 2019-06-08)
DX: F11.23 Opioid dependence with withdrawal (principal); F17.213 Nicotine dependence, cigarettes, with withdrawal; L90.5 Scar conditions and fibrosis of skin; Z87.81 Personal history of (healed) traumatic fracture
CPT/HCPCS: J0735

== ENCOUNTER 2019-09-05 11:09 | Inpatient (IN) | payer OTHER ==
--- NOTE | 2019-09-05 12:33 | BHS.RME ---
Substance Use & Tx History - Substance Use History Opiates (Heroin) Substance amount: 5 abgs Frequency of use: Daily Substance route: Injection (ex: intravenous or skin popping) Date of Last Use: 09/05/19 Cocaine (Powder) Substance amount: 20$ Frequency of use: Once a month Substance route: Inhalation (ex: sniffing or snorting), Injection (ex: intravenous or skin popping) Date of Last Use: 09/03/19 - Last Treatment Date of last treatment: 06/08/19 to 06/09/19 Where was last treatment: Detox ([facility] not completed non compliance) Physical/Psych/Mental Status - Behavior General Behavior: Increased activity (restlessness, agitation) Eye Contact: Normal - Cooperativeness Cooperativeness: Cooperative - Thinking Thought Processes: Logical - Physical Health Problems Is patient presently having any pain?: No Does patient presently have any injuries (include location): No Does patient currently have a fever: No COWS - Scale Resting Pulse: 1= [place] 81-100 (patient has problem with non complaince issue and signing out,will be contracted if patient need detox,legal issue,drug possession) Sweatin= Chills/Flushing Restless Observation: 1= Difficult to Sit Still Pupil Size: 1= Pupils >than Normal Bone or Joint Aches: 2= Severe Diffuse Aches Runny Nose/ Eye Tearin= Runny Nose/Eyes GI Upset > 30mins: 2= Nausea/Diarrhea Tremor Observation: 2= Slight Tremor Visible Yawning Observation: 2= >3x During Session Anxiety or Irritability: 2=Irritable/Anxious Goose Flesh Skin: 0=Smooth Skin COWS Score: 16
[2019-09-05 13:37] VITALS: BMI 25.9
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
[2019-09-05] MEDS ORDERED: MENTHOL/PHENOL 1 EACH UD MM PRN (14:35)
[2019-09-05] MEDS ORDERED: IBUPROFEN 400 MG TABLET (FP) PO PRN (14:35)
[2019-09-05] MEDS ORDERED: MAGNESIUM HYDROX 2400MG/30ML ORAL SUSPENSION 30 ML CUP PO PRN (14:35)
[2019-09-05] MEDS ORDERED: MAG HYDROX/AL HYDROX/SIMETH 30 ML UNIT-DOSE CUP PO PRN (14:35)
[2019-09-05] MEDS ORDERED: ACETAMINOPHEN 325 MG TABLET (FP) PO PRN ×2 (14:35)
[2019-09-05] MEDS ORDERED: cloNIDine HCL 0.1 MG TABLET PO PRN (14:35)
[2019-09-05] MEDS ORDERED: MAGNESIUM CITRATE 300 ML BOTTLE PO PRN (14:35)
[2019-09-05] MEDS ORDERED: METHOCARBAMOL 500 MG TABLET PO PRN (14:35)
[2019-09-05] MEDS ORDERED: BISMUTH SUBSALICYLATE 524 MG/30 ML UD PO PRN (14:35)
[2019-09-05] MEDS ORDERED: MELATONIN 5 MG TABLETS PO PRN (14:35)
[2019-09-05] MEDS ORDERED: METHADONE HCL 10 MG TABLET (FOR DETOX USE ONLY) PO ONE (15:45)
[2019-09-05] MEDS: NICOTINE 21 MG/24 HOURS TOPICAL PATCH TD SCH (16:02)
[2019-09-05] MEDS: NICOTINE POLACRILEX 4 MG GUM BUC PRN ×2 (17:10→22:43)
[2019-09-05] MEDS: chlordiazePOXIDE 5 MG CAPSULE PO PRN ×2 (17:12→23:40)
[2019-09-05] MEDS ORDERED: THIAMINE HCL 100 MG TABLET (FP) PO SCH (22:00)
[2019-09-06] MEDS: NICOTINE POLACRILEX 4 MG GUM BUC PRN ×5 (03:43→17:12)
[2019-09-06] MEDS: chlordiazePOXIDE 5 MG CAPSULE PO PRN ×2 (05:52→13:42)
[2019-09-06] MEDS ORDERED: METHADONE HCL 5 MG TABLET (FOR DETOX USE ONLY) ONE (09:14)
[2019-09-06] MEDS ORDERED: METHADONE HCL 10 MG TABLET (FOR DETOX USE ONLY) ONE (09:14)
[2019-09-06] MEDS ORDERED: PRENATAL VITAMINS W/ FOLIC ACID TABLET (FP) PO SCH (10:00)
[2019-09-06] MEDS ORDERED: METHADONE (DETOX) 20 MG, METHADONE (DETOX) 5 MG PO ONE (10:00)
[2019-09-06] MEDS: NICOTINE 21 MG/24 HOURS TOPICAL PATCH TD SCH (10:52)
[2019-09-06 11:46] LABS: HEMATOCRIT 38.7 % (35.4-49); HEMOGLOBIN 13.1 GM/dL (11.7-16.9); MCH 29.2 pg (25.7-33.7); MCHC 33.7 g/dl (32.0-35.9); MEAN CELL VOLUME 86.5 fl (80-96); MEAN PLT VOLUME 8.2 fl (7.5-11.1); PLATELET COUNT 209 K/MM3 (134-434); RBC 4.48 M/mm3 (4.00-5.60); WHITE BLOOD COUNT 5.2 K/mm3 (4.0-10.0)
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
[2019-09-06 11:53] LABS: ALBUMIN 3.4 g/dl (3.4-5.0); BILIRUBIN,TOTAL 0.2 mg/dL (0.2-1); BLOOD UREA NITROGEN 24.3 mg/dL (7-18); CALCIUM 8.6 mg/dL (8.5-10.1); POTASSIUM 4.1 mmol/L (3.5-5.1)
--- NOTE | 2019-09-06 12:45 | PN ---
[facility] COWS - Scale Resting Pulse: 0= MI 80 or Below Sweatin= Chills/Flushing Restless Observation: 1= Difficult to Sit Still Pupil Size: 2= Moderately Dilated Bone or Joint Aches: 2= Severe Diffuse Aches Runny Nose/ Eye Tearin= Nasal Congestion GI Upset > 30mins: 2= Nausea/Diarrhea Tremor Observation of Outstretched Hands: 0= None Yawning Observation: 0= None Anxiety or Irritability: 2=Irritable/Anxious Goose Flesh Skin: 0=Smooth Skin COWS Score: 11 [facility] Progress Note (SOAP) Subjective: Patient admitted for opiod withdrawal symptoms. C/o chills, sweating, restlessness, anxiety and nausea Objective: 09/06/19 12:44 Laboratory Tests 09/06/19 09/06/19 07:25 07:25 WBC 5.2 RBC 4.48 Hgb 13.1 Hct 38.7 MCV 86.5 MCH 29.2 MCHC 33.7 RDW 15.0 Plt Count 209 MPV 8.2 Sodium 141 Potassium 4.1 Chloride 108 H Carbon Dioxide 27 Anion Gap 5 L BUN 24.3 H Creatinine 1.0 Est GFR (CKD-EPI)AfAm 112.51 Est GFR (CKD-EPI)NonAf 97.08 Random Glucose 84 Calcium 8.6 Total Bilirubin 0.2 AST 18 ALT 30 Alkaline Phosphatase 63 Total Protein 7.0 Albumin 3.4 Vital Signs Temperature 98.1 F 09/06/19 11:41 Pulse Rate 66 09/06/19 11:41 Respiratory Rate 18 09/06/19 11:41 Blood Pressure 118/70 09/06/19 11:41 O2 Sat by Pulse Oximetry (%) PE alert and oriented x 3 skin warm, moist +perrla, eoms intact bl gi nt, nd ext mild tremors, full rom amb ad siomara anxious/restless Assessment: 09/06/19 12:45 opiod withdrawal sx Plan: continue detox
[2019-09-06 18:48] VITALS: BP 122/70; PULSE 74; TEMP 97.3
[2019-09-06] MEDS ORDERED: NALOXONE (NARCAN) HCL 4 MG/0.1 ML SPRAY NS PRN (19:57)
--- NOTE | 2019-09-06 19:57 | DS ---
[facility] Detox Discharge Summary Admission Date: 09/05/19 Discharge Date: 09/06/19 - History Present History: Opioid Dependence Pertinent Past History: Pt admitted yesterday for treatment of OUD. Pt states he came in worried about legal issues. States he does not want to be here as he is not ready to detox and come off heroin. d/w pt at length about the consequence of continued use including overdose. Pt would like to leave AMA before completing detox. Pt states that he is in an outpt program which would prescribe him suboxone. 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 - Physical Exam Results Vital Signs: Vital Signs Temperature 97.3 F L 09/06/19 19:00 Pulse Rate 74 09/06/19 19:00 Respiratory Rate 18 09/06/19 19:00 Blood Pressure 122/70 09/06/19 19:00 O2 Sat by Pulse Oximetry (%) - Medication Discharge Medications: Ambulatory Orders Alprazolam 2 mg PO BID 09/05/19 - AMA Did Patient Leave Against Medical Advice: Yes
[2019-09-06] MEDS ORDERED: SUVOREXANT 10 MG TABLET PO PRN (22:00)
[2019-09-07] MEDS ORDERED: METHADONE HCL 10 MG TABLET (FOR DETOX USE ONLY) PO ONE (10:00)
[2019-09-08] MEDS ORDERED: METHADONE (DETOX) 10 MG, METHADONE (DETOX) 5 MG PO ONE (10:00)
[2019-09-09] MEDS ORDERED: METHADONE HCL 10 MG TABLET (FOR DETOX USE ONLY) PO ONE (10:00)
[2019-09-10] MEDS ORDERED: METHADONE HCL 5 MG TABLET (FOR DETOX USE ONLY) PO ONE (06:00)
== END 2019-09-06 20:09 | disposition left against medical advice (07) | DRG 770 ==
LOC: YASAS 11:09 → Y6N 14:32
PROVIDERS: ADMIT Allergy & Immunology; ATTEND Allergy & Immunology
PROC: HZ2ZZZZ Detoxification Services for Substance Abuse Treatment (ICD-10-PCS; principal; 2019-09-05)
DX: F11.23 Opioid dependence with withdrawal (principal); F14.10 Cocaine abuse, uncomplicated; F17.210 Nicotine dependence, cigarettes, uncomplicated; F19.282 Other psychoactive substance dependence with psychoactive substance-induced sleep disorder; F41.9 Anxiety disorder, unspecified
CPT/HCPCS: 36415; 80053; 85027; 86593; 87389; J0735